=== PATIENT | male | born 1985 | race Caucasian/White ===

== ENCOUNTER 2022-10-05 04:40 | Day surgery (SDC) | payer OTHER ==
[2022-10-02 12:02] LABS: BASOPHILS # (AUTO) 0.1 K/uL (0.0-0.2); BASOPHILS % (AUTO) 1.1 % (0.0-2.0); EOSINOPHILS # (AUTO) 0.2 K/uL (0.0-0.4); EOSINOPHILS % (AUTO) 2.9 % (0.0-4.0); HEMATOCRIT 48.8 % (36-54); HEMOGLOBIN 16.6 g/dL (14.0-18.0); LYMPHOCYTES # (AUTO) 1.4 K/uL (1.0-5.5); LYMPHOCYTES % (AUTO) 17.8 % (20.5-51.5); MEAN CORPUSCULAR HEMOGLOBIN 33 pg (27-31); MEAN CORPUSCULAR HGB CONC 34 % (32-36); MEAN CORPUSCULAR VOLUME 98 fL (79.0-98.0); MONOCYTES # (AUTO) 0.7 K/uL (0.0-1.0); MONOCYTES % (AUTO) 8.8 % (1.7-9.3); NEUTROPHILS # (AUTO) 5.5 K/uL (1.8-7.7); NEUTROPHILS % (AUTO) 69.4 % (40.0-70.0); PLATELET COUNT (AUTO) 366 K/uL (130-430); WHITE BLOOD COUNT (AUTO) 7.9 K/uL (4.8-10.8)
[2022-10-02 12:02] LABS: BILIRUBIN,URINE NEGATIVE (NEGATIVE); CLARITY/URINE CLEAR (CLEAR); COLOR,URINE YELLOW (YELLOW); GLUCOSE,URINE NEGATIVE (NEGATIVE); KETONES,URINE NEGATIVE (NEGATIVE); LEUKOCYTE ESTERASE ,URINE NEGATIVE (NEGATIVE); NITRITE, URINE NEGATIVE (NEGATIVE); PROTEIN URINE NEGATIVE (NEGATIVE)
[2022-10-02 12:04] LABS: BLOOD, URINE TRACE (NEGATIVE)
[2022-10-02 12:33] LABS: BACTERIA,URINE None Seen /HPF (None Seen); HYALINE CASTS, URINE 0-10 /LPF (None Seen); MUCUS,URINE 3+ /LPF (None Seen); WBC,URINE NONE SEEN /HPF (0-3)
[~2022-10-05] VITALS: Ht 182.9 cm; Wt 79.4 kg
[2022-10-05] MEDS ORDERED: ONDANSETRON HCL 4 MG/2 ML VIAL IVP PRN (08:30)
[2022-10-05] MEDS ORDERED: HYDROmorphone 1 MG/ML INJ. CARTRIDGE IVP PRN (08:30)
[2022-10-05] MEDS ORDERED: KETOROLAC TROMETHAMINE 30 MG VIAL IVP PRN (08:30)
[2022-10-05] MEDS ORDERED: METOCLOPRAMIDE HCL 10 MG/2 ML VIAL IVP PRN (08:30)
[2022-10-05] MEDS ORDERED: IBUPROFEN 800 MG TABLET PO PRN (08:30)
[2022-10-05] MEDS ORDERED: MEPERIDINE HCL/PF 25 MG/ML DISP.SYRIN IVP PRN (08:30)
[2022-10-05] MEDS ORDERED: CEFAZOLIN 2 GM IVPB PREMIX 50 ML IV ONE (09:35)
[2022-10-05] MEDS ORDERED: SEVOFLURANE 15 MIN GAS INH ONE (09:35)
[2022-10-05] MEDS ORDERED: PROPOFOL 200MG/ 20ML VIAL (DIPRIVAN) IV ONE (09:35)
[2022-10-05] MEDS ORDERED: MIDAZOLAM HCL 5 MG/ML VIAL (VERSED) IV ONE (09:35)
[2022-10-05] MEDS ORDERED: fentaNYL CITRATE/PF 100 MCG/2 ML AMP ONE (09:35)
[2022-10-05] MEDS ORDERED: LR 1,000 ML IV.SOLN IV ONE (09:35)
[2022-10-05] MEDS ORDERED: ONDANSETRON HCL 4 MG/2 ML VIAL ONE ×2 (09:35→12:10)
[2022-10-05] MEDS ORDERED: NS IRRIG SOLN 1000 ML IR ONE (09:35)
[2022-10-05] MEDS: HYDROmorphone 2 MG/ML VIAL ONE ×2 (09:38→10:10)
[2022-10-05] MEDS ORDERED: ONDANSETRON HCL 4 MG/2 ML VIAL IVP ONE (12:15)
[2022-10-05 17:08] VITALS: BP_SYST 128
== END 2022-10-05 16:00 | disposition home or self-care (01) ==
LOC: SDS 04:40 → SMU 04:40 → SDS 16:00
PROVIDERS: ATTEND Student in an Organized Health Care Education/Training Program
DX: S93.315A Dislocation of tarsal joint of left foot, initial encounter (principal); S93.05XA Dislocation of left ankle joint, initial encounter; X58.XXXA Exposure to other specified factors, initial encounter; Y93.89 Activity, other specified; Y92.89 Other specified places as the place of occurrence of the external cause; Y99.8 Other external cause status; Z20.822 Contact with and (suspected) exposure to COVID-19
CPT/HCPCS: 81000; 85025; 36415 ×2; 28576; 28546; 82962; 76000; 87426; U0003; J0690; J2250; J2405; J2704; J3010; J1170; J7120; C1713 ×2